=== PATIENT | female | born 1995 | race Caucasian/White ===

== ENCOUNTER 2019-10-16 17:37 | Emergency (ER) | payer OTHER ==
[2019-10-16] MEDS ORDERED: TYLENOL 325 MG PO ONE (17:48)
[2019-10-16] MEDS ORDERED: TYLENOL 325 MG ONE (17:52)
[2019-10-16 17:59] VITALS: O2SAT 98
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
[2019-10-16 18:57] VITALS: BP 131/91; PULSE 124
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
== END 2019-10-16 19:12 | disposition home or self-care (01) ==
LOC: ED 17:37
DX: S02.609A Fracture of mandible, unspecified, initial encounter for closed fracture (principal); S40.011A Contusion of right shoulder, initial encounter; T74.11XA Adult physical abuse, confirmed, initial encounter
CPT/HCPCS: 70110; 73030; 84703; 99284; A9270-GY